=== PATIENT | female | born 1990 | race Caucasian/White ===

== ENCOUNTER 2024-09-01 22:01 | Emergency (ER) | payer OTHER ==
[~2024-09-01] VITALS: Ht 170.2 cm; Wt 115.9 kg
[2024-09-01 22:20] VITALS: TEMP 98.6
[2024-09-01 22:47] LABS: COVID AG,FIA SOURCE NASAL SWAB
[2024-09-01 23:04] LABS: INFLUENZA TYPE A NEGATIVE FOR TYPE A (NEGATIVE); INFLUENZA TYPE B NEGATIVE FOR TYPE B (NEGATIVE); SARS-COV2 (COVID) ANTIGEN,FIA Negative (Negative)
[2024-09-01 23:12] LABS: PLATELET COUNT (AUTO) 223 K/uL (150-450); RED BLOOD CELL COUNT(AUTO) 4.50 MIL/uL (4.00-5.20); RED CELL DISTRIBUTION WIDTH 12.3 % (11.5-14.5); WHITE BLOOD COUNT (AUTO) 9.7 K/uL (4.5-11.0)
[2024-09-01 23:22] LABS: CALCIUM, TOTAL 9.5 mg/dL (8.8-10.5); CREATININE 0.73 mg/dL (0.60-1.30); GLOMERULAR FILTR. RATE CALC > 60 mL/min (>60); GLUCOSE,RANDOM 107 mg/dL (70-110); SODIUM SERUM 140 mmol/L (136-145); UREA NITROGEN, BLOOD 10 mg/dL (7-18)
[2024-09-01 23:34] LABS: TROPONIN I-HIGH SENSITIVITY Less Than 4 ng/L (<51)
[2024-09-01 23:41] LABS: CREATINE KINASE, TOTAL ONLY 2379 U/L (26-192)
[2024-09-02 00:29] VITALS: BP 138/92; PULSE 89; RESP 15; O2SAT 94
== END 2024-09-02 00:46 | disposition home or self-care (01) ==
LOC: EMS 22:04
DX: I10 Essential (primary) hypertension (principal); R06.02 Shortness of breath; M62.82 Rhabdomyolysis; Z98.890 Other specified postprocedural states; Z20.822 Contact with and (suspected) exposure to COVID-19
CPT/HCPCS: 71045; 80048; 82550; 83880; 84484; 84703; 85025; 85379; 85610; 85730; 87804; 93005; 99285; 36415-L1; 36415-TC